=== PATIENT | female | born 2000 | race African-American/Black ===

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

== ENCOUNTER 2023-02-08 09:26 | Observation (INO) | payer MEDICARE ==
[~2023-02-08] VITALS: Ht 162.6 cm; Wt 59.0 kg
[2023-02-08] MEDS ORDERED: FERR325T6 PO (10:24)
[2023-02-08] MEDS ORDERED: ASCO-339 PO (10:24)
[2023-02-08 11:39] LABS: CLARITY URINE CLEAR (CLEAR); COLOR URINE YELLOW (YELLOW); KETONES URINE TRACE (NEGATIVE); LEUKOCYTE ESTERASE URINE TRACE (NEGATIVE); NITRITE URINE NEGATIVE (NEGATIVE); OCCULT BLOOD URINE NEGATIVE (NEGATIVE); PROTEIN URINE NEGATIVE (NEGATIVE); SPECIFIC GRAVITY URINE 1.016 (1.005-1.030); UROBILINOGEN URINE 0.2 E.U./dL (0.2-1.0)
== END 2023-02-08 13:45 | disposition left against medical advice (07) ==
LOC: 8 EST LDRP 09:26
PROVIDERS: ADMIT Obstetrics & Gynecology; ATTEND Obstetrics & Gynecology
DX: O26.893 Other specified pregnancy related conditions, third trimester (principal); R10.9 Unspecified abdominal pain; Z3A.35 35 weeks gestation of pregnancy
CPT/HCPCS: 59025; 81003; 76818; 76805; G0378 ×2; 99281

== ENCOUNTER 2023-02-25 08:26 | Observation (INO) | payer MEDICARE ==
[~2023-02-25] VITALS: Ht 170.2 cm; Wt 81.6 kg
[~2023-02-25 08:26] MED LIST: ASCO-339 PO; FERR325T6 PO
== END 2023-02-25 11:00 | disposition home or self-care (01) ==
LOC: 8 EST LDRP 08:26
PROVIDERS: ADMIT Psychiatry & Neurology Psychiatry; ATTEND Obstetrics & Gynecology
DX: O36.8130 Decreased fetal movements, third trimester, not applicable or unspecified (principal); Z3A.38 38 weeks gestation of pregnancy
CPT/HCPCS: 59025; 76815; 76818; G0378 ×2; 99281